=== PATIENT | male | born 1990 | race African-American/Black ===

== ENCOUNTER 2018-10-26 20:56 | Inpatient (IN) | payer OTHER ==
[~2018-10-26] VITALS: Ht 188 cm; Wt 117.9 kg
[2018-10-26 21:03] VITALS: BP 180/122
--- NOTE | 2018-10-26 22:17 | ER.PDOC ---
General Chief Complaint: Allergic Reaction Stated Complaint: POSS ALLG REACTION Time seen by MD: 22:17 Source: patient Exam Limitations: no limitations History of Present Illness Initial Comments patient noted swelling of the upper lip about 4 hours ago, no ann no difficulty swallowing, no other medical complaints, pt is on lisinopril Severity: moderate Associated Symptoms: facial swelling Identified Cause: possibly Exposure: OZZY inhibitor Allergies: Coded Allergies: lisinopril (Verified Allergy, Severe, SWELLING OF THE FACE, 10/27/18) Home Meds Reported Medications Metoprolol Tartrate 50MG (LOPRESSER 50MG) 50 Mg Tablet, 50 MG PO BID, #60 TAB 10/27/18 Vital Signs First Vital Signs Date Time Temp Pulse Resp B/P (MAP) Pulse Ox O2 Delivery O2 Flow Rate FiO2 10/26/18 21:03 98.3 76 18 98.3 10/26/18 21:03 97 Room Air 10/26/18 21:03 180/122 (141) Last Vital Signs Date Time Temp Pulse Resp B/P (MAP) Pulse Ox O2 Delivery O2 Flow Rate FiO2 10/26/18 21:03 98.3 76 18 180/122 (141) 97 Room Air 98.3 Past Medical History Medical History: hypertension Social History Smoking: less than 1 pack/day Alcohol Use: occassionally Drug Use: none Constitutional: denies fever EENTM: denies eye pain Respiratory: no symptoms reported; denies cough, denies shortness of breath Cardiovascular: denies chest pain Gastrointestinal: denies abdominal pain Genitourinary: denies flank pain Musculoskeletal: denies back pain Skin: denies rash Psychiatric/Neurological: denies headache Endocrine: denies flushing Hematologic/Lymphatic: denies blood clots Physical Exam General Appearance: alert, no distress HEENT: ENT nml inspection, voice nml Skin: no rash Extremities: non-tender Neck: nml inspection Respiratory: no resp. distress, breath sounds nml CVS: reg. rate & rhythm Abdomen: non-tender NEURO/PSYCH: oriented x 3, CN's nml as tested Comments patient noted to have angioedema on the upper lip, no tongue or throat involvement. no ann handles secretions without difficulty Departure Time of Disposition: 01:23 Disposition: 09 ADMITTED INPATIENT Impression: Primary Impression: Angio-edema Condition: Critical Referrals: PCP,UNKNOWN (PCP) PRIMARY CARE PROVIDER Duration or Time Spent with Pa: 30 DONAVON BELLE MD Oct 26, 2018 22:17
[2018-10-26] MEDS ORDERED: PEPCID IV STA (22:20)
[2018-10-26] MEDS ORDERED: BENADRYL IV STA (22:20)
[2018-10-26] MEDS ORDERED: SOLU-MEDROL IV STA (22:20)
[2018-10-26] MEDS ORDERED: BENADRYL ONE (22:34)
[2018-10-26] MEDS ORDERED: SOLU-MEDROL ONE (22:34)
[2018-10-26] MEDS ORDERED: PEPCID IV ONE (22:34)
[2018-10-26] MEDS ORDERED: TORADOL ONE (22:42)
[2018-10-26] MEDS ORDERED: TORADOL IV STA (22:46)
[2018-10-26] MEDS ORDERED: MORPHINE SULFATE IV STA (23:55)
[2018-10-26] MEDS ORDERED: MORPHINE SULFATE ONE (23:57)
[2018-10-27 00:18] LABS: CALCIUM 9.2 mg/dL (8.4-10.5); CARBON DIOXIDE 25.9 mmol/L (20.0-32)
[2018-10-27 00:43] LABS: BASOPHIL # 0.1 10^3/uL (0.0-0.1); BASOPHIL % 0.5 % (0.0-0.2); EOSINOPHIL # 0.2 10^3/uL (0.0-0.2); EOSINOPHIL % 1.7 % (0.0-5.0); LYMPHOCYTES # 2.1 10^3/uL (1.0-4.8); MEAN CELL HGB 31.5 pg (26-34); MEAN CELL HGB CONCENTRATION 34.5 g/dL (33-37); MEAN CORP VOLUME 91.2 fL (78-100); MEAN PLATELET VOLUME 10.5 fL (7.8-11.0); MONOCYTES # 0.5 10^3/uL (0.3-0.8); MONOCYTES % 4.8 % (5.0-12.0); NEUTROPHIL # 7.3 10^3/uL (1.8-7.7); PLATELET COUNT 336 10^3/uL (150-400); RED CELL DISTRIBUTION WIDTH 13.3 % (11.5-14.5); WHITE BLOOD CELL 10.2 10^3/uL (4.5-11.0)
[2018-10-27] MEDS ORDERED: MORPHINE SULFATE ONE (02:24)
[2018-10-27] MEDS ORDERED: METO50TA6 PO (02:27)
[2018-10-27] MEDS ORDERED: MORPHINE SULFATE IV PRN ×3 (02:30→03:00)
[2018-10-27 02:49] VITALS: BP 176/110
[2018-10-27 02:56] VITALS: BP 173/110
--- NOTE | 2018-10-27 03:14 | NUR ---
TRIED TO NOTIFY DR. OLGUIN OF PT'S B/P OF 173/110, NO ANSWER LEFT MESSAGE, WILL CONTINUE TO MONITOR. PT LYING IN BED, SIDE RAILS UP, CALL LIGHT IN REACH
--- NOTE | 2018-10-27 03:56 | NUR ---
WENT BACK IN ROOM TO ADMIT PT, PT IS SNORING, WHEN TRIED TO WAKE HE JUST MUMBLES AND GOES BACK TO SLEEP. PT RECEIVED HIGH DOSE OF MORPHINE IN ER. WILL LET PT REST FOR A BIT THEN TRY AGAIN.
--- NOTE | 2018-10-27 06:48 | NUR ---
REPORT REPORT RECEIVED FROM Josh OROPEZA LVN ASSUMED CARE OF PT
[2018-10-27 07:31] VITALS: BP 143/81
[2018-10-27] MEDS ORDERED: NORCO 10MG PO ONE (09:07)
--- NOTE | 2018-10-27 09:14 | NUR ---
STATUS DR OLGUIN IN ROOM WITH PT, RECEIVED ORDER TO D/C MORPHINE AND FOR DILAUDID 1MG IV Q4 PRN PAIN. NO S/S OF DISTRESS NOTED WILL CONT TO MONITOR.
[2018-10-27] MEDS ORDERED: NORCO 10MG PO PRN ×2 (09:30→10:00)
--- NOTE | 2018-10-27 10:43 | NUR ---
DISCHARGE PLANNING CM VISITED WITH PATIENT REGARDING D/C NEED. PATIENT STATES HE IS VERY INDEPENDENT OF ADLS AND LIVES AT HOME WITH HIS SPOUSE AND KIDS BACK IN [place]. 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 HE DOES HAVE ALL DME IN PLACE INCLUDING A NEBULIZER. HE STATES HE DOES NOT HAVE ANY OTHER NEEDS AND REFUSES ANY RESOURCES. D/C GOAL IS FOR PATIENT TO D/C BACK HOME ON DISCHARGE. CM WILL CONTINUE TO FOLLOW NEEDS.
[2018-10-27] MEDS ORDERED: SOLU-MEDROL IV SCH (12:00)
--- NOTE | 2018-10-27 12:22 | PCM.HP ---
HISTORY & PHYSICAL HISTORY & PHYSICAL DATE OF ADMISSION: CHIEF COMPLAINT: 28 yo male with HTN on OZZY comes in with severe edema and pain of maxilla and upper face after minor trauma . Admit for angioedema and monitor airway and ability to manage secretions. H&P # [id number] HISTORY OF PRESENT ILLNESS: ALLERGIES: CURRENT MEDICATIONS: PAST MEDICAL HISTORY: SOCIAL HISTORY: FAMILY HISTORY: REVIEW OF SYSTEMS: PHYSICAL EXAMINATION: GENERAL: VITAL SIGNS: HEENT: NECK: LUNGS: HEART: ABDOMEN: EXTREMITIES: NEUROLOGIC: LABORATORY DATA: IMPRESSION: CARE PLAN: YARED OLGUIN MD Oct 27, 2018 12:22
[2018-10-27] MEDS ORDERED: CATAPRES ONE (12:41)
[2018-10-27 12:48] VITALS: BP 170/118
[2018-10-27] MEDS: CATAPRES PO SCH ×2 (12:59→21:07)
[2018-10-27] MEDS: HYDROCHLOROTHIAZIDE PO SCH (13:00)
[2018-10-27] MEDS: DILAUDID IV PRN ×2 (13:08→19:38)
--- NOTE | 2018-10-27 13:27 | HPH ---
ADMIT DATE: 10/27/2018 CHIEF COMPLAINT: Facial pain and swelling. HISTORY OF PRESENT ILLNESS: This is a 28-year-old male with a past medical history of hypertension and obesity. He lives in [place], but is in the [place] area, working in the oil field currently. He states that he has sustained an injury yesterday or a piece of oil pipping equipment hit him in the upper lip on the right side causing him to be knocked down, but without loss of consciousness. It caused a little bit of bleeding in the mouth, but did not appear to loosen any teeth. He did have some swelling of the upper lip, worse on the right, that he noticed over the next several hours. He then noticed later in the evening that the lip began swelling much more and this spread to the entire lip and then both sides of the upper mandible and upper part of the face causing severe pain in the lip as well as both cheeks and up into the eyes as well as headache. He had subjective fever as well as generalized muscle aches and pains. His pain was referred somewhat to the lower jaw line, but was not significantly tender on that location. PAST MEDICAL HISTORY: 1. Hypertension. 2. Obesity. MEDICATIONS: Lisinopril 20 mg p.o. daily. ALLERGIES: None. PAST SURGICAL HISTORY: None. SOCIAL HISTORY: 1. Alcohol: Social, tobacco: None. 2. Recreational drugs: None. FAMILY HISTORY: Denies. REVIEW OF SYSTEMS: GENERAL: No recent weakness, fever or malaise. CARDIAC: Denies chest pain, orthopnea, PND or palpitations. RESPIRATORY: Denies shortness of breath, cough or congestion. GASTROINTESTINAL: No nausea, vomiting, diarrhea or constipation. No history of hepatitis. GENITOURINARY: Denies dysuria, frequency, hematuria or nocturia. No incontinence. HEMATOLOGIC: No easy bleeding or bruising. ENDOCRINE: No recent weight loss or weight gain. No temperature intolerance. NEUROLOGIC: Denies headache, paresthesias or dizziness. MUSCULOSKELETAL: Denies muscular weakness or atrophy. PSYCHIATRIC: Denies anxiety or depression. PHYSICAL EXAMINATION: VITAL SIGNS: Temperature 98.3, pulse 76, respirations 18, blood pressure 180/122, O2 sat 97% on room air. GENERAL: This is an obese male, in no acute distress. HEENT: Atraumatic, normocephalic. Sclerae are clear and anicteric. Oral mucosa is moist. The face and maxilla is severely edematous bilaterally, worse in the lip area. He has tenderness on the inner aspect of the right side of the lip as well as the right palatine area. He has tenderness in the right zygomatic arch region. NECK: Soft, supple. Normal range of motion. No tenderness, bruits, goiter, mass or adenopathy. There is no JVD. LUNGS: Clear to auscultation bilaterally. HEART: Regular rate and rhythm without murmurs, S3 or S4. ABDOMEN: Soft, nontender, nondistended. EXTREMITIES: Warm and well perfused without evidence of edema, cyanosis or clubbing. NEUROLOGIC: Cranial nerves 2 through 12 are grossly intact and symmetric. SKIN: Intact. LABORATORY DATA: WBC 10.2, hemoglobin 14, hematocrit 40.6, platelets 336. Sodium 141, potassium 3.7, chloride 105, BUN 19, creatinine 1.38. ASSESSMENT: 1. Facial/school trauma/injury. 2. Angioedema right upper maxilla or maxillary process. 3. Hypertension. 4. Prerenal azotemia. 5. Facial pain and swelling. PLAN: 1. The patient is admitted to [facility] for further evaluation and management. 2. His airway is currently not compromised and his secretions are managed well. We will follow this over the next 12 hours and make sure that these remain uncompromised. 3. Continue IV corticosteroids and will get a CT of the maxilla and facial bones to rule out any type of abscess. 4. Discontinue OZZY inhibitors then listed as allergy. We will start hydrochlorothiazide and clonidine for blood pressure control. 5. IV Dilaudid for pain control. 6. Hopefully, home in the next 24 hours. Michi Martínez MD DR: LESTER/aurelio JOB# [id number]
--- NOTE | 2018-10-27 14:46 | DIREP ---
PROCEDURE:CT MAXILLOFACIAL W/CONTRAST COMPARISON:None. INDICATIONS:Eval for angioedema and abscess of face and maxilla. TECHNIQUE:Axial CT images were created without intravenous contrast. Sagittal and coronal reformatted images are provided. FINDINGS: ORBITS:The globe is intact. No extraocular muscle entrapment is identified. No orbital wall fracture is identified. FACIAL BONES:No fracture. NASAL BONES :No fracture MANDIBLE:Multiple dental prosthetics. No visualized periodontal abscess. No periapical lucency. No fracture. SINUSES:No air fluid level is seen. No mucosal thickening. Surrounding bone structures are intact. SOFT TISSUES:Diffuse soft tissue swelling throughout the face, compatible with the clinical history of angioedema. No abnormal soft tissue masses or fluid collections. No evidence of airway narrowing. CONCLUSION:Findings compatible with angioedema. Dictated by: Braxton Lujan DO on 10/27/2018 at 02:44 PM
[2018-10-27] MEDS: NORCO 10MG PO PRN (15:51)
[2018-10-27 16:15] VITALS: BP 166/99
[2018-10-27] MEDS: SOLU-MEDROL IV SCH ×2 (17:42→23:54)
--- NOTE | 2018-10-27 18:36 | NUR ---
report received report from offgoing shift
[2018-10-27 20:28] VITALS: BP 157/99
[2018-10-27] MEDS: LOPRESSOR PO SCH (21:07)
[2018-10-28 00:21] VITALS: BP 158/95
[2018-10-28 03:54] VITALS: BP 151/95
[2018-10-28] MEDS: SOLU-MEDROL IV SCH ×2 (05:48→11:25)
--- NOTE | 2018-10-28 06:47 | NUR ---
report report given to o/c shift
[2018-10-28 08:40] VITALS: BP 140/78
[2018-10-28] MEDS: HYDROCHLOROTHIAZIDE PO SCH (09:17)
[2018-10-28] MEDS: CATAPRES PO SCH (09:17)
[2018-10-28] MEDS: LOPRESSOR PO SCH (09:17)
[2018-10-28] MEDS: NORCO 10MG PO PRN (09:31)
[2018-10-28] MEDS ORDERED: AMLO5TAB4 PO (09:52)
[2018-10-28] MEDS ORDERED: PRED50TA PO (09:52)
[2018-10-28] MEDS ORDERED: DIPH25CA57 PO (09:52)
[2018-10-28] MEDS ORDERED: HYDR25TA9 PO (09:52)
--- NOTE | 2018-10-28 09:56 | PRM.PN ---
Subjective Subjective Date: Oct 28, 2018 Time: 09:53 Subjective Feeling much better. Swelling much improved. No swallowing or breathing problems. VTE VTE Risk Total Score: 0 VTE Risk Score VTE Risk: Score 0-1 = Low Risk (Aggressive mobilization; early ambulation; no VTE prophylaxis required) Score 2: Moderate Risk (Intermittent/Pneumatic Compression Device OR Lovenox/Heparin/Coumadin) Score 3-4: High Risk (Intermittent/Pneumatic Compression Device AND Lovenox/Heparin/Coumadin) Score > or =5: Highest Risk (Intermittent/Pneumatic Compression Device AND Lovenox/Heparin/Coumadin) Review of Systems Constitutional: No: Fever, Chills, Sweats, Weakness, Malaise, Other ENT: No: Ear pain, Ear discharge, Nose pain, Nose discharge, Nose congestion, Mouth pain, Mouth swelling, Throat pain, Throat swelling, Other Respiratory: No: Cough, Dry, Shortness of breath, SOB with excertion, Wheezing , Hemoptysis, Pleuritic Pain, Sputum, Wheezing, Other Cardiovascular: No: Chest Pain, Palpitations, Orthopnea, Paroxysmal Noc. Dyspnea, Edema, Lt Headedness, Other Neurological: No: Weakness, Numbness, Incoordination, Change in speech, Confusion, Seizures, Other Allergies: Coded Allergies: lisinopril (Verified Allergy, Severe, SWELLING OF THE FACE, 10/27/18) Scheduled Amlodipine Besylate (Norvasc), 5 MG PO DAILY24 Diphenhydramine Hcl (Benadryl), 25 MG PO DAILY24 Hydrochlorothiazide (Hydrochlorothiazide), 25 MG PO DAILY Metoprolol Tartrate 50MG (Lopresser 50MG), 50 MG PO BID, (Reported) Prednisone (Prednisone), 50 MG PO DAILY24 Objective Vitals and I/O Vital Sign - Last 24 Hours 10/27/18 10/27/18 10/27/18 10/27/18 11:47 12:48 12:59 13:00 Temp 98.4 98.4 Pulse 104 80 Resp 20 B/P (MAP) 170/118 (135) 171/118 171/118 Pulse Ox 98 O2 Delivery Room Air 10/27/18 10/27/18 10/27/18 10/27/18 16:15 20:28 21:07 22:17 Temp 98.4 98.5 98.4 98.5 Pulse 93 94 94 Resp 18 18 B/P (MAP) 166/99 (121) 157/99 (118) 157/99 Pulse Ox 94 93 O2 Delivery Room Air 10/28/18 10/28/18 10/28/18 10/28/18 00:21 03:54 08:40 09:17 Temp 98.0 98.1 97.6 98.0 98.1 97.6 Pulse 74 67 65 Resp 18 20 19 B/P (MAP) 158/95 (116) 151/95 (113) 140/78 (98) 140/78 Pulse Ox 94 94 97 O2 Delivery Room Air Room Air 10/28/18 09:17 Pulse 65 B/P (MAP) 140/78 Intake and Output 10/27/18 10/27/18 10/28/18 15:00 23:00 07:00 Intake Total 1600 ml Balance 1600 ml General: Alert, Oriented X3, Cooperative, No acute distress HEENT: Other (Minimal edema right maxillary area.) Lungs: Clear to auscultation Heart: Regular rate, Normal S1, Normal S2, No murmurs Extremities: No clubbing, No cyanosis, No edema, Normal pulses, No tenderness/ swelling All Results(Lab/Rad) Current Medications Medications (Trade) Dose Ordered Sig/Lonnie Route PRN Reason Start Time Stop Time Status Last Admin Dose Admin Methylprednisolone Sodium Succinate (Solu-Medrol) 125 mg STAT STAT IV 10/26/18 22:20 10/26/18 22:22 DC 10/26/18 22:46 Diphenhydramine HCl (Benadryl) 25 mg STAT STAT IV 10/26/18 22:20 10/26/18 22:22 DC 10/26/18 22:46 Famotidine (Pepcid) 20 mg STAT STAT IV 10/26/18 22:20 10/26/18 22:22 DC 10/26/18 22:46 Famotidine (Pepcid) 20 mg STK-MED ONCE IV 10/26/18 22:34 10/26/18 22:36 DC Diphenhydramine HCl (Benadryl) 50 mg STK-MED ONCE .ROUTE 10/26/18 22:34 10/26/18 22:36 DC Methylprednisolone Sodium Succinate (Solu-Medrol) 125 mg STK-MED ONCE .ROUTE 10/26/18 22:34 10/26/18 22:36 DC Ketorolac Tromethamine (Toradol) 30 mg STK-MED ONCE .ROUTE 10/26/18 22:42 10/26/18 22:44 DC Ketorolac Tromethamine (Toradol) 30 mg STAT STAT IV 10/26/18 22:46 10/26/18 22:47 DC 10/26/18 22:46 Morphine Sulfate (Morphine Sulfate) 4 mg STAT STAT IV 10/26/18 23:55 10/26/18 23:56 DC 10/27/18 00:04 Morphine Sulfate (Morphine Sulfate) 4 mg STK-MED ONCE .ROUTE 10/26/18 23:57 10/26/18 23:59 DC Morphine Sulfate (Morphine Sulfate) 1 mg Q4H PRN IV PAIN 10/27/18 02:30 10/27/18 02:30 DC Morphine Sulfate (Morphine Sulfate) 4 mg STAT PRN IV PAIN 10/27/18 02:30 10/27/18 10:18 DC 10/27/18 02:34 Morphine Sulfate (Morphine Sulfate) 4 mg STK-MED ONCE .ROUTE 10/27/18 02:24 10/27/18 02:26 DC Morphine Sulfate (Morphine Sulfate) 3 mg Q4H PRN IV SEVERE PAIN 10/27/18 03:00 10/27/18 10:18 DC 10/27/18 07:18 Acetaminophen/ Hydrocodone Bitart (Ingleside 10mg) 1 each STK-MED ONCE PO 10/27/18 09:07 10/27/18 09:08 DC Acetaminophen/ Hydrocodone Bitart (Ingleside 10mg) NORCO 10MG Q6H PRN PO PAIN 10/27/18 09:30 10/27/18 09:36 DC 10/27/18 09:21 Acetaminophen/ Hydrocodone Bitart (Ingleside 10mg) 1 each Q6H PRN PO MODERATE PAIN 10/27/18 09:36 11/26/18 09:29 10/28/18 09:31 Acetaminophen/ Hydrocodone Bitart (Ingleside 10mg) 2 each Q6H PRN PO SEVERE PAIN 10/27/18 10:00 11/26/18 09:59 10/28/18 00:08 Hydromorphone HCl (Dilaudid) 1 mg Q4H PRN IV PAIN 8-10 10/27/18 10:30 11/26/18 10:29 10/27/18 19:38 Methylprednisolone Sodium Succinate (Solu-Medrol) 80 mg Q6 IV 10/27/18 12:00 10/27/18 13:29 DC 10/27/18 13:00 Hydrochlorothiazide (Hydrochlorothiazide) 25 mg DAILY PO 10/27/18 12:30 11/26/18 12:29 10/28/18 09:17 Clonidine (Catapres) 0.1 mg BID PO 10/27/18 12:30 11/26/18 12:29 10/28/18 09:17 Clonidine (Catapres) 0.2 mg STK-MED ONCE .ROUTE 10/27/18 12:41 10/27/18 12:43 DC Methylprednisolone Sodium Succinate (Solu-Medrol) 80 mg Q6 IV 10/27/18 13:29 11/26/18 11:59 10/28/18 05:48 Metoprolol Tartrate (Lopressor) 50 mg BID PO 10/27/18 21:00 11/26/18 20:59 10/28/18 09:17 Course Sepsis Screening Results: Posi: NEGATIVE Sepsis Qualifier/Stage: NO DEFINITE RISK Duration or Total Time Spent w: 30 Vitals & review Data Vital Sign - Last 24 Hours 10/27/18 10/27/18 10/27/18 10/27/18 11:47 12:48 12:59 13:00 Temp 98.4 98.4 Pulse 104 80 Resp 20 B/P (MAP) 170/118 (135) 171/118 171/118 Pulse Ox 98 O2 Delivery Room Air 10/27/18 10/27/18 10/27/18 10/27/18 16:15 20:28 21:07 22:17 Temp 98.4 98.5 98.4 98.5 Pulse 93 94 94 Resp 18 18 B/P (MAP) 166/99 (121) 157/99 (118) 157/99 Pulse Ox 94 93 O2 Delivery Room Air 10/28/18 10/28/18 10/28/18 10/28/18 00:21 03:54 08:40 09:17 Temp 98.0 98.1 97.6 98.0 98.1 97.6 Pulse 74 67 65 Resp 18 20 19 B/P (MAP) 158/95 (116) 151/95 (113) 140/78 (98) 140/78 Pulse Ox 94 94 97 O2 Delivery Room Air Room Air 10/28/18 09:17 Pulse 65 B/P (MAP) 140/78 Intake and Output 10/27/18 10/27/18 10/28/18 15:00 23:00 07:00 Intake Total 1600 ml Balance 1600 ml Laboratory Tests Test 10/27/18 00:00 White Blood Count 10.2 10^3/uL Red Blood Count 4.45 10^6/uL Hemoglobin 14.0 g/dL Hematocrit 40.6 % Mean Corpuscular Volume 91.2 fL Mean Corpuscular Hemoglobin 31.5 pg Mean Corpuscular Hemoglobin Concent 34.5 g/dL Red Cell Distribution Width 13.3 % Platelet Count 336 10^3/uL Mean Platelet Volume 10.5 fL Neutrophils (%) (Auto) 72.0 % Lymphocytes (%) (Auto) 21.0 % Monocytes (%) (Auto) 4.8 % Neutrophils # (Auto) 7.3 10^3/uL Lymphocytes # (Auto) 2.1 10^3/uL Monocytes # (Auto) 0.5 10^3/uL Eosinophils % 1.7 % Basophils % 0.5 % Basophils # 0.1 10^3/uL Eosinophil Count 0.2 10^3/uL Sodium Level 141 mmol/L Potassium Level 3.7 mmol/L Chloride Level 105.0 mmol/L Carbon Dioxide Level 25.9 mmol/L Glucose Level 100 mg/dL Blood Urea Nitrogen 19 mg/dL Creatinine 1.38 mg/dL Calcium Level 9.2 mg/dL Anion Gap 13.8 Estimated GFR () 73.2 BUN/Creatinine Ratio 13.0 Current Medications Medications (Trade) Dose Ordered Sig/Lonnie PRN Reason Start Time Stop Time Status Last Admin Acetaminophen/ Hydrocodone Bitart (Ingleside 10mg) 1 each Q6H PRN MODERATE PAIN 10/27/18 09:36 11/26/18 09:29 10/28/18 09:31 Acetaminophen/ Hydrocodone Bitart (Ingleside 10mg) 2 each Q6H PRN SEVERE PAIN 10/27/18 10:00 11/26/18 09:59 10/28/18 00:08 Clonidine (Catapres) 0.1 mg BID 10/27/18 12:30 11/26/18 12:29 10/28/18 09:17 Hydrochlorothiazide (Hydrochlorothiazide) 25 mg DAILY 10/27/18 12:30 11/26/18 12:29 10/28/18 09:17 Hydromorphone HCl (Dilaudid) 1 mg Q4H PRN PAIN 8-10 10/27/18 10:30 11/26/18 10:29 10/27/18 19:38 Methylprednisolone Sodium Succinate (Solu-Medrol) 80 mg Q6 10/27/18 13:29 11/26/18 11:59 10/28/18 05:48 Metoprolol Tartrate (Lopressor) 50 mg BID 10/27/18 21:00 11/26/18 20:59 10/28/18 09:17 Sepsis Infection Criteria Pres: None LEVEL 2-SIRS (LIST ALL THAT AP: HR>90/min Cardiovascular Evidence: Not Assessed or None Hematologic Evidence: None/Not assessed Hepatic Evidence: None/Not assessed Metabolic Evidence: None/Not assessed Neurological Evidence: None/Not assessed Respiratory Evidence: None/Not assessed Renal Evidence: None/Not assessed O2 Sat by Pulse Oximetry: 97 Assessment/Plan Assessment/Plan Assessment/Plan 1.) Lymphedema - Much improved. Can d/c home. Steroids for 5 days. Bendadryl for 3 days. Can return to work on Wednesday. 2.) HTN - Change to Norvasc 5 mg and HCTZ 25 mg daily. - D/C Lisinopril. 3.) Facial Pain - Can use Ibuprofen OTC. YARED OLGUIN MD Oct 28, 2018 09:56
[2018-10-28 11:56] VITALS: BP 140/78
--- NOTE | 2018-10-28 12:55 | NUR ---
DISCHARGE PT DC AT THIS TIME. PT UNDERSTANDS TO TAKE NEW MEDICATIONS PRESCRIBED ALONG WITH MONITOR FACIAL SWELLING. PT UNDERSTANDS TO FOLLOW UP WITH PCP WHEN RETURN BACK HOME. PT REFUSED TO ALLOW ME TO TAKE PICTURES OF HIS FACE PRIOR TO DISCHARGE. PT DENIES ANY QUESTIONS OR CONCERNS AT THIS TIME. PT LEAVES THE FLOOR BY WHEELCHAIR TO PRIVATE VEHICLE. NO OTHER NEEDS NOTED AT THIS TIME.
== END 2018-10-28 11:56 | disposition home or self-care (01) | DRG 916 ==
LOC: ER 20:56 → MS 10-27 02:15 → EDPENDDISTM 10-28 11:56
PROVIDERS: ADMIT Internal Medicine; ATTEND Internal Medicine
DX: T78.3XXA Angioneurotic edema, initial encounter (principal); I89.0 Lymphedema, not elsewhere classified; I10 Essential (primary) hypertension; R79.89 Other specified abnormal findings of blood chemistry; R51 Headache; E66.9 Obesity, unspecified; F17.210 Nicotine dependence, cigarettes, uncomplicated; Z79.899 Other long term (current) drug therapy; Z88.8 Allergy status to other drugs, medicaments and biological substances; Z68.33 Body mass index [BMI] 33.0-33.9, adult
CPT/HCPCS: 36415; 70487; 80048; 85025; 99285; G0378; J1170; J1200; J1885; J2270; J2920; J2930; J3490; Q9965

== ENCOUNTER 2018-12-04 17:23 | Emergency (ER) | payer OTHER ==
[~2018-12-04] VITALS: Ht 177.8 cm; Wt 113.4 kg
[~2018-12-04 17:23] MED LIST: AMLO5TAB4 PO; DIPH25CA57 PO; HYDR25TA9 PO; METO50TA6 PO; PRED50TA PO
[2018-12-04 17:37] VITALS: BP 157/106
--- NOTE | 2018-12-04 17:52 | ER.PDOC ---
General Chief Complaint: Male Stated Complaint: MALE Time seen by MD: 17:52 Source: patient Exam Limitations: no limitations History of Present Illness Initial Comments Pt with sensation of tingling on tip of penis for two days, denies discharge and states that he had oral sex two weeks ago Timing/Duration: week Severity/Quality: mild Location: urethral (tingling) Associated Symptoms: Dysuria Sexual History: Unprotected intercourse Allergies: Coded Allergies: lisinopril (Verified Allergy, Severe, SWELLING OF THE FACE, 10/27/18) Home Meds Active Scripts Diphenhydramine Hcl (BENADRYL) 25 Mg Capsule, 25 MG PO DAILY24 for 3 Days, CAPSULE Prov:YARED OLGUIN MD 10/28/18 Prednisone (PREDNISONE) 50 Mg Tablet, 50 MG PO DAILY24 for 4 Days Prov:YARED OLGUIN MD 10/28/18 Amlodipine Besylate (NORVASC) 5 Mg Tablet, 5 MG PO DAILY24 for 30 Days, #30 TABLET Prov:YARED OLGUIN MD 10/28/18 Hydrochlorothiazide (HYDROCHLOROTHIAZIDE) 25 Mg Tablet, 25 MG PO DAILY for 30 Days, #30 TABLET Prov:YARED OLGUIN MD 10/28/18 Reported Medications Metoprolol Tartrate 50MG (LOPRESSER 50MG) 50 Mg Tablet, 50 MG PO BID, #60 TAB 10/27/18 Past Medical History Medical History: hypertension Surgical History: other Social History Smoking: cigarettes, greater than 1 pack/day Alcohol Use: occassionally Drug Use: none Review of Systems Genitourinary: see HPI All Other Systems: Reviewed and Negative Physical Exam General Appearance: No Apparent Distress, WD/WN EENT: eyes nml inspection, nml ENT inspection, pharynx nml Neck: nml inspection, non-tender Cardiovascular/Respiratory: Regular Rate, Rhythm, No M/R/G, Normal Peripheral Pulses, No JVD, Normal Breath Sounds, No Respiratory Distress Abdomen: Normal Bowel Sounds, Non Tender, Soft, No Organomegaly, No Pulsatile Mass Male Genitals: Normal Genitalia, Uncircumcised Back: nml inspection Extremities: Normal Range of Motion, Non-Tender, Normal Inspection, No Pedal Edema, No Calf Tenderness, Normal Capillary Refill Neurologic/Psychiatric: special services coordinator II-XII NML as Tested, No Motor/Sensory Deficits, Alert, Normal Mood/Affect, Oriented x 3 Skin: Normal Color, Warm/Dry Lymphatic: No Adenopathy Results/Orders Results/Orders Orders - DAKSHA THACKER MD Urinalysis (12/04/18 17:50) Chlamydia/Gcamplification(Ref) (12/04/18 17:50) Vital Signs Date Time Temp Pulse Resp B/P (MAP) Pulse Ox O2 Delivery O2 Flow Rate FiO2 12/04/18 17:37 88 18 12/04/18 17:37 98.6 65 18 157/106 (123) 97 98.6 12/04/18 17:37 98.6 83 18 97 Room Air 98.6 10/28/18 11:56 65 10/28/18 09:17 65 Laboratory Tests Test 12/04/18 18:05 Urine Collection Type Pending Urine Color YELLOW (YELLOW) Urine Appearance CLEAR (CLEAR) Urine Bilirubin NEGATIVE MG/DL (NEGATIVE) Urine Ketones 5 mg/dL (NEGATIVE) H Urine Specific [place] 1.020 (1.005-1.035) Urine pH 5 (5.0-6.0) Urine Protein 15 mg/dL (NEGATIVE) H Urine Urobilinogen 1.0 (NEGATIVE) H Urine Nitrate NEGATIVE (NEGATAIVE) Urine Leukocyte Esterase 25 /uL TRACE (NEGATIVE) Urine Blood NEGATIVE (NEGATIVE) Urine Glucose NORMAL (NEGATIVE) Departure Time of Disposition: 18:28 Disposition: 01 HOME, SELF-CARE Impression: Primary Impression: Urethritis Condition: Stable Patient Instructions: Sexually Transmitted Diseases (STD) In , Urethritis, Adult Referrals: PCP,UNKNOWN (PCP) PRIMARY CARE PROVIDER Duration or Time Spent with Pa: DAKSHA WEINBERG MD Dec 04, 2018 17:52
[2018-12-04 18:18] LABS: BILIRUBIN,URINE NEGATIVE (NEGATIVE)
[2018-12-04 18:19] LABS: APPEARANCE,URINE CLEAR (CLEAR); UA COLOR YELLOW (YELLOW)
[2018-12-04 18:43] VITALS: BP 157/106
== END 2018-12-04 18:44 | disposition home or self-care (01) ==
LOC: ER 17:23
DX: N34.2 Other urethritis (principal); I10 Essential (primary) hypertension; F17.210 Nicotine dependence, cigarettes, uncomplicated; Z79.899 Other long term (current) drug therapy; Z88.8 Allergy status to other drugs, medicaments and biological substances
CPT/HCPCS: 36415; 81000; 87086; 87491; 87591; 99283; 99284